=== PATIENT | female | born 1965 | race Caucasian/White ===

== ENCOUNTER 2020-02-18 11:25 | Observation (INO) | payer OTHER ==
[2020-02-18] MEDS ORDERED: ASPIRIN 81 MG PO STA (11:49)
[2020-02-18] MEDS ORDERED: NITROGLYCERIN OINT 1 INCH/GM PACKET TOPICAL STA (11:49)
--- NOTE | 2020-02-18 11:58 | ED ---
General Adult HPI - General Chief complaint: Chest Pain Stated complaint: Chest pressure, lightheaded Time Seen by Provider: 02/18/20 11:30 Source: patient, RN notes reviewed, old records reviewed Mode of arrival: wheelchair Limitations: no limitations - History of Present Illness Initial comments: This is a 55-year-old female with past medical history significant for high blood pressure and smoking. Patient states yesterday while at work she had abo ut a half an hour of chest pain and also some left arm pain. Patient states when away and returned this morning when she was driving into work. Patient states sustained pressure in her chest going down her arm. Patient states she turned around and got home so her could take her to the hospital. Patient states currently she is chest pain-free. Patient denies any difficulty breathing or shortness of breath that it worsened with the chest pain. Patient denied any diaphoretic episodes. Patient denied any nausea. Patient states she felt a little dizzy and she had chest pain. Patient denies any abdominal pain. Patient has any fever chills or cough. Patient denies any headache patient denies numbness or weakness - Related Data Home Medications Medication Instructions Recorded Confirmed Albuterol Inhaler (Mhu) [Ventolin 1 - 2 puff INHALATION Q6HR PRN 04/28/16 04/28/16 Hfa Inhaler] Previous Rx's Medication Instructions Recorded hydroCHLOROthiazide [Hydrodiuril] 25 mg PO DAILY #60 tab 04/28/16 Allergies Allergy/AdvReac Type Severity Reaction Status Date / Time cefaclor [From Ceclor] Allergy Unknown Verified 02/18/20 11:33 Sulfa (Sulfonamide Allergy Rapid Verified 02/18/20 11:33 Antibiotics) Heart Rate Review of Systems ROS Statement: Those systems with pertinent positive or pertinent negative responses have been documented in the HPI. ROS Other: All systems not noted in ROS Statement are negative. Past Medical History Past Medical History: Asthma, Hypertension History of Any Multi-Drug Resistant Organisms: None Reported Past Surgical History: Section Past Psychological History: No Psychological Hx Reported Smoking Status: Current every day smoker Past Alcohol Use History: Rare Past Drug Use History: None Reported General Exam - General Exam Comments Initial Comments: GENERAL: Patient is well-developed and well-nourished. Patient is nontoxic and well- hydrated and is in mild distress. ENT: Neck is soft and supple. No significant lymphadenopathy is noted. Oropharynx is clear. Moist mucous membranes. Neck has full range of motion without eliciting any pain. There is no thyroid enlargement and no masses were felt. EYES: The sclera were anicteric and conjunctiva were pink and moist. Extraocular movements were intact and pupils were equal round and reactive to light. Eyelids were unremarkable. PULMONARY: Unlabored respirations. Good breath sounds bilaterally. No audible rales rhonchi or wheezing was noted. CARDIOVASCULAR: There is a regular rate and rhythm without any murmurs gallops or rubs. ABDOMEN: Soft and nontender with normal bowel sounds. SKIN: Skin is clear with no lesions or rashes and otherwise unremarkable. NEUROLOGIC: Patient is alert and oriented x3. Cranial nerves II through XII are grossly intact. Motor and sensory are also intact. Normal speech, volume and content. Symmetrical smile. MUSCULOSKELETAL: Normal extremities with adequate strength and full range of motion. LYMPHATICS: No significant lymphadenopathy is noted PSYCHIATRIC: Normal psychiatric evaluation. 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 Patient's EKG shows no ST segment elevation or depression. Chest x-ray shows no acute abnormality. Patient remained chest pain-free during her ED stay. I started the patient heparin for the unstable angina picture. I spoke with Dr. Garcia and he agreed to admit the patient I admitted the patient wrote admitting orders I consult cardiology continued heparin and aspirin and Nitropaste on the floor. - Lab Data Result diagrams: 02/18/20 11:53 02/18/20 11:53 Lab Results 02/18/20 02/18/20 02/18/20 Range/Units 11:53 11:53 11:53 WBC 12.6 H (3.8-10.6) k/uL RBC 5.13 (3.80-5.40) m/uL Hgb 15.6 (11.4-16.0) gm/dL Hct 48.6 H (34.0-46.0) % MCV 94.8 (80.0-100.0) fL MCH 30.4 (25.0-35.0) pg MCHC 32.0 (31.0-37.0) g/dL RDW 12.2 (11.5-15.5) % Plt Count 344 (150-450) k/uL Neutrophils % 74 % Lymphocytes % 20 % Monocytes % 5 % Eosinophils % 0 % Basophils % 0 % Neutrophils # 9.2 H (1.3-7.7) k/uL Lymphocytes # 2.5 (1.0-4.8) k/uL Monocytes # 0.6 (0-1.0) k/uL Eosinophils # 0.1 (0-0.7) k/uL Basophils # 0.1 (0-0.2) k/uL PT 9.9 (9.0-12.0) sec INR 0.9 (<1.2) APTT 24.4 (22.0-30.0) sec Sodium 143 (137-145) mmol/L Potassium 4.3 (3.5-5.1) mmol/L Chloride 109 H (98-107) mmol/L Carbon Dioxide 25 (22-30) mmol/L Anion Gap 9 mmol/L BUN 10 (7-17) mg/dL Creatinine 0.65 (0.52-1.04) mg/dL Est GFR (CKD-EPI)AfAm >90 (>60 ml/min/1.73 sqM) Est GFR (CKD-EPI)NonAf >90 (>60 ml/min/1.73 sqM) Glucose 102 H (74-99) mg/dL Calcium 10.1 (8.4-10.2) mg/dL Magnesium 1.9 (1.6-2.3) mg/dL Total Bilirubin 0.4 (0.2-1.3) mg/dL AST 23 (14-36) U/L ALT 19 (4-34) U/L Alkaline Phosphatase 88 (38-126) U/L Total Protein 7.5 (6.3-8.2) g/dL Albumin 4.5 (3.5-5.0) g/dL Critical Care Time Critical Care Time: Yes Total Critical Care Time: 35 Disposition Clinical Impression: Unstable angina pectoris Disposition: ADMITTED IP TO THIS HOSP Referrals: None,Stated [Primary Care Provider] - 1-2 days Time of Disposition: 12:24
[2020-02-18 12:04] LABS: Basophils # (A) 0.1 k/uL (0-0.2); Basophils % (A) 0 %; Eosinophils # (A) 0.1 k/uL (0-0.7); Eosinophils % (A) 0 %; HCT 48.6 % (34.0-46.0); HGB 15.6 gm/dL (11.4-16.0); Lymphocytes # (A) 2.5 k/uL (1.0-4.8); Lymphocytes % (A) 20 %; MCH 30.4 pg (25.0-35.0); MCV 94.8 fL (80.0-100.0); Mean Platelet Volume 6.8; Monocytes # (A) 0.6 k/uL (0-1.0); Monocytes % (A) 5 %; Neutrophils # (A) 9.2 k/uL (1.3-7.7); Neutrophils % (A) 74 %; Platelet Count 344 k/uL (150-450); RBC 5.13 m/uL (3.80-5.40); RDW 12.2 % (11.5-15.5); WBC 12.6 k/uL (3.8-10.6)
[2020-02-18 12:12] LABS: ALT 19 U/L (4-34); AST 23 U/L (14-36); African American GFR (CKD) >90 (>60 ml/min/1.73 sqM); Albumin 4.5 g/dL (3.5-5.0); Alkaline Phosphatase 88 U/L (38-126); Anion Gap 9 mmol/L; Blood Urea Nitrogen 10 mg/dL (7-17); Calcium 10.1 mg/dL (8.4-10.2); Carbon Dioxide 25 mmol/L (22-30); Chloride 109 mmol/L (98-107); Glucose 102 mg/dL (74-99); Magnesium 1.9 mg/dL (1.6-2.3); Non-African American GFR(CKD) >90 (>60 ml/min/1.73 sqM); Potassium 4.3 mmol/L (3.5-5.1); Sodium 143 mmol/L (137-145); Total Bilirubin 0.4 mg/dL (0.2-1.3); Total Protein 7.5 g/dL (6.3-8.2)
--- NOTE | 2020-02-18 12:13 | XR ---
EXAMINATION TYPE: XR chest 2V DATE OF EXAM: 02/18/2020 COMPARISON: Chest x-ray October 25, 2014. HISTORY: Chest pressure and pain. TECHNIQUE: Frontal and lateral views of the chest are obtained. FINDINGS: Overlying EKG leads on current study. There is some chronic parenchymal change bilaterally without suspicious new focal air space opacity, pleural effusion, or pneumothorax seen. Few scattere d calcified old granulomas redemonstrated. The cardiac silhouette size remains within normal limits. The osseous structures are intact. IMPRESSION: No acute cardiopulmonary process. No significant change from prior.
[2020-02-18 12:18] LABS: INR 0.9 (<1.2); Partial Thromboplastin Time 24.4 sec (22.0-30.0); Prothrombin Time 9.9 sec (9.0-12.0)
[2020-02-18] MEDS ORDERED: HEPARIN SODIUM,PORCINE 5,000 UNIT/ML 1 ML VIAL IV ONE (12:20)
[2020-02-18] MEDS ORDERED: NITROGLYCERIN SL TABS 0.4 MG TAB SUBLINGUAL PRN (12:30)
[2020-02-18] MEDS ORDERED: HEPARIN SOD,PORK IN 0.45% NACL 25,000 UNIT in 0.45% NACL 1 250ML.BAG IV SCH (12:30)
--- NOTE | 2020-02-18 13:19 | P.CRDCN ---
History of Present Illness History of present illness: HISTORY OF PRESENTING ILLNESS This is a pleasant 55-year-old female past medical history significant for hypertension and chronic nicotine dependence. She denies prior history of c oronary artery disease and does not follow in the office with a rehab department manager. We have been asked to see in consultation for chest pain. She works as a massage therapist. Yesterday she was doing a massage when she felt acute onset of pressure in the left anterior chest wall with radiation down the left arm. She continued to finish her massage and her pain persisted for approximately 30 minutes. It ultimately subsided on its own with no specific exacerbating factor. She denies any associated symptoms at that time. She had no further symptoms that night. She woke up this morning feeling well. She was driving to work when she had another onset of chest discomfort with again radiation down the left arm but this time she felt very dizzy. Again her symptoms lasted about 20-30 minutes. The subsided prior to arrival to the emergency department. She also describes very brief intermittent palpitations at times. She did feel 1 palpitation once she was having chest discomfort however it was not persistent. DIAGNOSTICS EKG reveals sinus mechanism with nonspecific abnormalities inferiorly. Chest xray negative for an acute cardiopulmonary process. Laboratory reviewed, WBC 12.6, hemoglobin 15.6, platelets 344, sodium 143, potassium 4.3, creatinine 065, magnesium 1.9 and cardiac enzymes negative 1. Current cardiac medications include lisinopril 40 mg daily. REVIEW OF SYSTEMS At the time of my exam: CONSTITUTIONAL: Denies fever or chills. CARDIOVASCULAR: Denies chest pain, shortness of breath, orthopnea, PND or palpitations. RESPIRATORY: Denies cough. GASTROINTESTINAL: Denies abdominal pain, diarrhea, constipation, nausea or vomiting. MUSCULOSKELETAL: Denies myalgias. NEUROLOGIC: Denies numbness, tingling or weakness. ENDOCRINE: Denies fatigue, weight change, polydipsia or polyurina. GENITOURINARY: Denies burning, hematuria or urgency with micturation. HEMATOLOGIC: Denies history of anemia or bleeding. PHYSICAL EXAMINATION Blood pressure 123/85 heart rate 74 afebrile and maintaining oxygen saturation on room air. CONSTITUTIONAL: No apparent distress. HEENT: Head is normocephalic. Pupils are equal, round. Sclerae anicteric. Mucous membranes of the mouth are moist. No JVD. No carotid bruit. CHEST EXAMINATION: Lungs are clear to auscultation. No chest wall tenderness is noted on palpation or with deep breathing. HEART EXAMINATION: Regular rate and rhythm. S1, S2 heard. No murmurs, gallops or rub. ABDOMEN: Soft, nontender. Positive bowel sounds. EXTREMITIES: 2+ peripheral pulses, no lower extremity edema and no calf tenderness. NEUROLOGIC EXAMINATION: Patient is awake, alert and oriented x3. ASSESSMENT Chest pain Leukocytosis Hypertension Chronic nicotine dependence PLAN Continue to obtain serial cardiac enzymes to rule out an acute event. Heparin can be discontinued after 3 negative troponins. Obtain 2-D echocardiogram and Doppler study to assess cardiac structure and function. If an acute event has been ruled out we will proceed with stress echocardiogram tomorrow morning. Continuous telemetry monitoring. Check lipid profile in the morning. Thank you kindly for this consultation. Nurse Practitioner note has been reviewed, I agree with a documented findings and plan of care. Patient was seen and examined. Past Medical History Past Medical History: Asthma, Hypertension History of Any Multi-Drug Resistant Organisms: None Reported Past Surgical History: Section Past Psychological History: No Psychological Hx Reported Smoking Status: Current every day smoker Past Alcohol Use History: Rare Past Drug Use History: None Reported Medications and Allergies Home Medications Medication Instructions Recorded Confirmed Type Albuterol Sulfate [Albuterol 1 - 2 puff INHALATION RT-Q6H PRN 02/18/20 02/18/20 History Sulfate Hfa] lisinopriL [Zestril] 40 mg PO DAILY@0700 02/18/20 02/18/20 History Allergies Allergy/AdvReac Type Severity Reaction Status Date / Time cefaclor [From [facility]] Allergy Unknown Verified 02/18/20 12:44 Sulfa (Sulfonamide AdvReac Rapid Verified 02/18/20 12:44 Antibiotics) Heart Rate Physical Exam Vitals: Vital Signs Temp Pulse Pulse Pulse Resp BP BP 02/18/20 13:11 98.3 F 86 14 136/85 02/18/20 12:30 98.0 F 74 18 123/85 02/18/20 12:00 77 18 131/86 02/18/20 11:48 81 02/18/20 11:30 98.6 F 75 20 159/92 Pulse Ox 02/18/20 13:11 97 02/18/20 12:30 98 02/18/20 12:00 99 02/18/20 11:48 02/18/20 11:30 99 Intake and Output 02/17/20 02/18/20 02/18/20 22:59 06:59 14:59 Other: Weight 74.843 kg Results 02/18/20 11:53 02/18/20 11:53 Cardiac Enzymes 02/18/20 02/18/20 Range/Units 11:53 11:53 AST 23 (14-36) U/L Troponin I <0.012 (0.000-0.034) ng/mL Coagulation 02/18/20 Range/Units 11:53 PT 9.9 (9.0-12.0) sec APTT 24.4 (22.0-30.0) sec CBC 02/18/20 Range/Units 11:53 WBC 12.6 H (3.8-10.6) k/uL RBC 5.13 (3.80-5.40) m/uL Hgb 15.6 (11.4-16.0) gm/dL Hct 48.6 H (34.0-46.0) % Plt Count 344 (150-450) k/uL Comprehensive Metabolic Panel 02/18/20 Range/Units 11:53 Sodium 143 (137-145) mmol/L Potassium 4.3 (3.5-5.1) mmol/L Chloride 109 H (98-107) mmol/L Carbon Dioxide 25 (22-30) mmol/L BUN 10 (7-17) mg/dL Creatinine 0.65 (0.52-1.04) mg/dL Glucose 102 H (74-99) mg/dL Calcium 10.1 (8.4-10.2) mg/dL AST 23 (14-36) U/L ALT 19 (4-34) U/L Alkaline Phosphatase 88 (38-126) U/L Total Protein 7.5 (6.3-8.2) g/dL Albumin 4.5 (3.5-5.0) g/dL Current Medications Generic Name Dose Route Start Last Admin Trade Name Freq PRN Reason Stop Dose Admin Aspirin 325 mg 02/19/20 09:00 Aspirin PO DAILY SVEN Heparin Sodium/Sodium Chloride 250 mls @ 8.981 mls/hr 02/18/20 12:30 02/18/20 12:49 25,000 unit/ Sodium Chloride IV 12 units/kg/hr .Q24H SVEN 8.981 mls/hr Administration Protocol 12 UNITS/KG/HR Nitroglycerin 0.4 mg 02/18/20 12:30 Nitrostat SUBLINGUAL Q5M PRN Chest Pain Nitroglycerin 1 inch 02/18/20 18:00 Nitro-Bid Oint TOPICAL Q6HR SVEN Intake and Output 02/17/20 02/18/20 02/18/20 22:59 06:59 14:59 Other: Weight 74.843 kg Patient Weight 02/19/20 06:59 Weight 74.843 kg 02/18/20 11:53 02/18/20 11:53
[2020-02-18] MEDS ORDERED: TEMAZEPAM 15 MG CAP PO PRN (15:05)
[2020-02-18] MEDS ORDERED: ALPRAZolam 0.25 MG TAB PO PRN (15:05)
[2020-02-18] MEDS ORDERED: HYDROcodone/APAP 5-325MG 1 EACH TAB PO PRN (15:05)
[2020-02-18] MEDS ORDERED: ACETAMINOPHEN TAB 500 MG TAB PO PRN (15:05)
[2020-02-18] MEDS ORDERED: ALBUTEROL NEBULIZED 2.5 MG/3 ML INHALATION PRN (15:05)
--- NOTE | 2020-02-18 16:08 | HP ---
HISTORY AND PHYSICAL DATE OF SERVICE: 02/18/2020 CHIEF COMPLAINTS: Chest pain, lightheadedness. HISTORY OF PRESENT ILLNESS: This 55-year-old woman with a past medical history of multiple medical problems, including history of asthma, hypertension, being followed by a primary physician elsewhere, was going to work and the patient had chest pressure in the anterior part of the chest which was mild to moderate in intensity which was going down the left arm. The patient also felt dizzy. Then the patient came to [facility] and was admitted for further evaluation and treatment. There is no history of any fever, rigor or chills. No history of headache, loss of consciousness, seizures. White count is 12.6. Troponins are negative. Chest x-ray, which was reviewed personally by me, showed no acute abnormality and no significant changes. Cardiology evaluation is in progress. EKG showed incomplete right bundle block and ST-T changes. Cardiology is recommending a stress echo at this time. PAST MEDICAL HISTORY: History of asthma, hypertension. MEDICATIONS: Albuterol p.r.n. and Zestril 40 mg daily. ALLERGIES: CEFACLOR and SULFA. FAMILY HISTORY: History of CABG in a sister recently. Father had cardiomegaly. SOCIAL HISTORY: History of smoking, continued ongoing. No history of alcohol intake. The patient works as a massage therapist. REVIEW OF SYSTEMS: ENT: No diminished hearing. No diminished vision. CARDIOVASCULAR SYSTEM: As mentioned earlier. RESPIRATORY SYSTEM: As mentioned earlier. GI: No nausea, vomiting. : No dysuria or retention. NERVOUS SYSTEM: No numbness, weakness. ALLERGY/IMMUNOLOGY: No asthma, hayfever. MUSCULOSKELETAL: As mentioned earlier. HEMATOLOGY/ONCOLOGY: No history of anemia. ENDOCRINE: No history of diabetes, hypothyroidism. CONSTITUTIONAL: As mentioned earlier. DERMATOLOGY: Negative. RHEUMATOLOGY: Negative. PSYCHIATRY: As mentioned earlier. PHYSICAL EXAMINATION: Patient alert and oriented x3. Pulse is 86, blood pressure 136/85, respiration 14, temperature 98.3, pulse ox 97% on room air. HEENT: Conjunctivae normal. NECK: No jugular venous distention. CARDIOVASCULAR SYSTEM: S1, S2 muffled. RESPIRATORY SYSTEM: Breath sounds diminished at the bases. No rhonchi. No crackles. ABDOMEN: Soft, non-tender. No mass palpable. LEGS: No edema. No swelling. NERVOUS SYSTEM: Higher functions as mentioned earlier. Moves all 4 limbs. No focal motor or sensory deficit. LYMPHATICS: No lymph node palpable in neck, axillae or groin. SKIN: No ulcer, rash, bleeding. JOINTS: No active deforming arthropathy. LABS: WBC 12.6. Sodium 143, potassium 4.3. ASSESSMENT: 1. Chest pain; possible unstable angina. 2. Increased white count, possibly reactive. 3. History of asthma. 4. History of hypertension. 5. History of nicotine dependence. 6. Family history of coronary artery disease. RECOMMENDATIONS AND DISCUSSION: In this 55-year-old woman with a past medical history of multiple medical problems, presented with chest pain. We will proceed with unstable angina protocol. Rule out myocardial infarction. Cardiology consultation. Possible stress test. Also recommend repeat labs in the morning. There is no evidence of any infection so far, but I recommend a UA with micro also. Symptomatic treatment will be provided. Recommend close followup with the primary physician in the outpatient setting. MMODL / IJN: [id number] /
[2020-02-18] MEDS: PANTOPRAZOLE 40 MG/10 ML VIAL IVP SCH (16:50)
[2020-02-18 17:11] LABS: Amorphous Sediment,Urine Rare /hpf; Appearance,Urine Cloudy (Clear); Bilirubin,Urine Negative (Negative); Blood,Urine Trace (Negative); Color,Urine Yellow; Glucose,Urine (UA) Negative (Negative); Ketones,Urine Negative (Negative); Leukocyte Esterase,Urine Negative (Negative); Mucus,Urine Rare /hpf; Nitrite,Urine Negative (Negative); PH, Urine 7.5 (5.0-8.0); Protein,Urine Negative (Negative); RBC,Urine 9 /hpf (0-5); Specific Gravity,Urine 1.016 (1.001-1.035); Squamous Epithelial Cell,Urine <1 /hpf (0-4); Urobilinogen,Urine <2.0 mg/dL (<2.0); WBC,Urine 3 /hpf (0-5)
[2020-02-18] MEDS: NITROGLYCERIN OINT 1 INCH/GM PACKET TOPICAL SCH ×2 (19:13→21:38)
--- NOTE | 2020-02-18 20:50 | ECHOF ---
Referral Reason:chest pain, dizziness MEASUREMENTS -------- HEIGHT: 172.7 cm WEIGHT: 74.8 kg BP: 136/85 IVSd: 1.0 cm (0.6 - 1.1) LVIDd: 4.4 cm (3.9 - 5.3) LVPWd: 0.8 cm (0.6 - 1.1) IVSs: 1.6 cm LVIDs: 2.4 cm LVPWs: 1.4 cm LA Diam: 2.7 cm (2.7 - 3.8) RVIDd: 2.7 cm (< 3.3) LAESV Index (A-L): 14.74 ml/m Ao Diam: 3.2 cm (2.0 - 3.7) AV Cusp: 2.0 cm (1.5 - 2.6) EPSS: 0.8 cm MV E Rex: 0.95 m/s MV DecT: 288 ms MV A Rex: 1.21 m/s MV E/A Ratio: 0.78 AV maxP.20 mmHg AV meanP.07 mmHg AR PHT: 1280 ms MV EF SLOPE: 85.37 mm/s (70 - 150) MV EXCURSION: 13.67 mm (> 18.000) FINDINGS -------- Sinus rhythm. This was a technically adequate study. The left ventricular size is normal. Left ventricular wall thickness is normal. Overall left vent ricular systolic function is normal with, an EF between 60 - 65 %. The right ventricle is normal in size. Normal LA size by volume 22+/-6 ml/m2. The right atrium is normal in size. Interatrial and interventricular septum intact. There is mild aortic valve sclerosis. There is mild aortic regurgitation. Peak/mean gradient acro ss the Aortic Valve is 17.20mmHg / 9.07mmHg. The mitral valve is normal. The tricuspid valve appears structurally normal. There is no pulmonic regurgitation present. The aortic root size is normal. Normal inferior vena cava with normal inspiratory collapse consistent with estimated right atrial pre ssure of 5 mmHg. The inferior vena cava is mildly dilated. There is no pericardial effusion. CONCLUSIONS -------- 1. The left ventricular size is normal. 2. Left ventricular wall thickness is normal. 3. Overall left ventricular systolic function is normal with, an EF between 60 - 65 %. 4. There is mild aortic valve sclerosis. 5. There is mild aortic regurgitation. 6. Peak/mean gradient across the Aortic Valve is 17.20mmHg / 9.07mmHg. 7. The mitral valve is normal. 8. The inferior vena cava is mildly dilated. 9. There is no pericardial effusion. ENGINE TESTER: Chaparrita Garrett RDCS
[2020-02-19] MEDS: NITROGLYCERIN OINT 1 INCH/GM PACKET TOPICAL SCH (04:51)
[2020-02-19 06:51] LABS: Basophils # (A) 0.1 k/uL (0-0.2); Basophils % (A) 1 %; Eosinophils # (A) 0.1 k/uL (0-0.7); Eosinophils % (A) 1 %; HCT 46.1 % (34.0-46.0); HGB 14.7 gm/dL (11.4-16.0); Lymphocytes # (A) 3.9 k/uL (1.0-4.8); Lymphocytes % (A) 37 %; MCH 30.9 pg (25.0-35.0); MCHC 31.8 g/dL (31.0-37.0); MCV 97.1 fL (80.0-100.0); Mean Platelet Volume 7.1; Monocytes # (A) 0.6 k/uL (0-1.0); Monocytes % (A) 6 %; Neutrophils # (A) 5.7 k/uL (1.3-7.7); Neutrophils % (A) 54 %; Platelet Count 322 k/uL (150-450); RBC 4.75 m/uL (3.80-5.40); RDW 12.3 % (11.5-15.5); WBC 10.5 k/uL (3.8-10.6)
[2020-02-19] MEDS ORDERED: lisinopriL 20 MG TAB PO SCH (07:00)
[2020-02-19 07:03] LABS: African American GFR (CKD) >90 (>60 ml/min/1.73 sqM); Anion Gap 3 mmol/L; Blood Urea Nitrogen 12 mg/dL (7-17); Calcium 9.2 mg/dL (8.4-10.2); Carbon Dioxide 27 mmol/L (22-30); Chloride 109 mmol/L (98-107); Cholesterol 182 mg/dL (<200); Glucose 100 mg/dL (74-99); HDL Cholesterol 41 mg/dL (40-60); LDL Cholesterol,Calculated 124 mg/dL (0-99); Non-African American GFR(CKD) 90 (>60 ml/min/1.73 sqM); Potassium 4.4 mmol/L (3.5-5.1); Sodium 139 mmol/L (137-145); Triglycerides 87 mg/dL (<150)
[2020-02-19] MEDS: PANTOPRAZOLE 40 MG/10 ML VIAL IVP SCH (07:43)
[2020-02-19] MEDS ORDERED: DOBUTamine DRIP for NUC MED 500 MG in DEXTROSE/WATER 1 250ML.BAG IV ONE (08:26)
[2020-02-19 08:36] VITALS: BP 124/79; PULSE 59; RESP 16; TEMP 98.1
[2020-02-19] MEDS ORDERED: ATORVASTATIN 40 MG TAB PO SCH (09:00)
[2020-02-19] MEDS ORDERED: ASPIRIN 81 MG PO SCH (09:00)
[2020-02-19] MEDS ORDERED: ASPIRIN 325 MG TAB PO SCH (09:00)
--- NOTE | 2020-02-19 12:06 | ECHOS ---
STRESS ECHOCARDIOGRAM LUMASON: @@ Vial INDICATIONS: @@ MEDICATIONS: @@ BASELINE HEART RATE: @@ BASELINE BLOOD PRESSURE: @@ MAXIMUM HEART RATE: @@ MAXIMUM BLOOD PRESSURE: @@ 85% MPHR: @@ 100% MPHR: @@ METS: @@ MAXIMUM STAGE REACHED: @@ TOTAL EXERCISE TIME: @@ CLINICAL INFORMATION: @@ History of chest pain, history of smoking, hypertension. Baseline heart rate 59 beats per minute. Baseline blood pressure 144/79 mmHg. Baseline 12-lead ECG showed normal sinus rhythm with normal cardiac intervals. Patient received dobutamine infusion per protocol up to 140 mcg. Peak heart rate of 137 beats per minute. There was no ECG evidence for ischemia. Occasional PVCs were noted throughout the test. Blood pressure response was normal. The baseline 2D echo showed normal LV size and systolic function without segmental wall motion abnormalities. With dobutamine, there was stepwise increment in overall LV contractility without development of any wall motion abnormalities. At recovery, regional global LV systolic function remained normal. IMPRESSION: No ECG or echocardiographic evidence for ischemia, PVCs noted with dobutamine infusion. MMODL / IJN: [id number] /
--- NOTE | 2020-02-19 12:11 | P.PN ---
Subjective HISTORY OF PRESENTING ILLNESS This is a pleasant 55-year-old female past medical history significant for hypertension and chronic nicotine dependence. Her sister had bypass grafting at the age of 58. She has had no further symptoms of chest pain since arriving at the hospital. Echocardiogram referring is preserved LV systolic function with mild aortic stenosis. Laboratory data reviewed, LDL 124. Cardiac enzymes negative 3. Dobutamine stress echocardiogram negative for stress-induced ischemia. Telemetry tracings unremarkable for an acute arrhythmia. PHYSICAL EXAMINATION CONSTITUTIONAL: No apparent distress. HEENT: Head is normocephalic. Pupils are equal, round. Sclerae anicteric. Mucous membranes of the mouth are moist. No JVD. No carotid bruit. CHEST EXAMINATION: Lungs are clear to auscultation. No chest wall tenderness is noted on palpation or with deep breathing. HEART EXAMINATION: Regular rate and rhythm. S1, S2 heard. No murmurs, gallops or rub. EXTREMITIES: 2+ peripheral pulses, no lower extremity edema and no calf tenderness. ASSESSMENT Chest pain Leukocytosis Hypertension Chronic nicotine dependence Family history of premature coronary artery disease PLAN Stress test is normal with no evidence for stress induced ischemia. Recommend initiation of atorvastatin 20 mg daily. Rational discussed in great detail with the patient. Follow up in the office with Dr. Martínez in 3 weeks. Nurse Practitioner note has been reviewed, I agree with a documented findings and plan of care. Patient was seen and examined. Objective - Vital Signs Vital signs: Vital Signs Temp 98.1 F 02/19/20 07:41 Pulse 59 L 02/19/20 08:36 Resp 16 02/19/20 08:36 BP 124/79 02/19/20 07:41 Pulse Ox 97 02/19/20 07:41 Intake & Output 02/18/20 02/19/20 02/19/20 18:59 06:59 18:59 Intake Total 140 522.447 91.906 Balance 140 522.447 91.906 Weight 74.843 kg 74.84 kg Intake: Intake, IV Titration 72.447 91.906 Amount Heparin Sod,Pork in 0.45% 72.447 91.906 NaCl 25,000 unit In 0.45 % NaCl 1 250ml.bag @ 12 UNITS/KG/HR 8.981 mls/hr IV .[facility] Rx#: [id number] Oral 140 450 Other: Voiding Method Toilet Toilet Toilet # Voids 1 1 - Labs CBC & Chem 7: 02/19/20 06:04 02/19/20 06:04 Labs: Abnormal Lab Results - Last 24 Hours (Table) 02/18/20 02/18/20 02/18/20 Range/Units 11:53 16:53 19:00 Hct (34.0-46.0) % APTT 64.5 H (22.0-30.0) sec Chloride 109 H (98-107) mmol/L Glucose 102 H (74-99) mg/dL LDL Cholesterol, Calc (0-99) mg/dL Urine Appearance Cloudy H (Clear) Urine Blood Trace H (Negative) Urine RBC 9 H (0-5) /hpf Amorphous Sediment Rare H (None) /hpf Urine Mucus Rare H (None) /hpf 02/19/20 02/19/20 02/19/20 Range/Units 06:04 06:04 06:04 Hct 46.1 H (34.0-46.0) % APTT 70.6 H (22.0-30.0) sec Chloride 109 H (98-107) mmol/L Glucose 100 H (74-99) mg/dL LDL Cholesterol, Calc 124 H (0-99) mg/dL Urine Appearance (Clear) Urine Blood (Negative) Urine RBC (0-5) /hpf Amorphous Sediment (None) /hpf Urine Mucus (None) /hpf
--- NOTE | 2020-02-19 17:05 | DS ---
DISCHARGE SUMMARY DATE OF SERVICE: 02/19/2020 FINAL DIAGNOSES: 1. Chest pain possibly musculoskeletal, myocardial infarction ruled out. Negative stress test. 2. Increased WBC possibly reactive. 3. History of asthma. 4. History of hypertension. 5. History of nicotine dependence. 6. Family history of coronary artery disease. DISCHARGE DISPOSITION: The patient will be discharged in a stable condition with guarded prognosis. HISTORY OF PRESENT ILLNESS: This is a 55-year-old woman with a past medical history of multiple medical problems, admitted with chest pain. Cardiology saw the patient, recommended a stress test which was a dobutamine stress echo was done which was reported showing no ECG echocardiogram evidence of ischemia. The patient will be discharged in stable condition. On exam, vitals are stable. CARDIOVASCULAR: S1, S2. ABDOMEN: Soft. NERVOUS SYSTEM: No focal deficits. DISCHARGE ADVICE: 1. Diet is cardiac diet. 2. Limited activity until followup. 3. Follow up with primary physician in 2-3 days. 4. Follow up with Dr. Martínez as recommended. MEDICATIONS: 1. Albuterol p.r.n. 2. Zestril 40 mg daily. 3. Lipitor 40 mg daily. Once again, the patient will be discharged in stable condition with guarded prognosis. MMODL / IJN: [id number] /
== END 2020-02-19 12:34 | disposition home or self-care (01) ==
LOC: EC 11:25 → 3NCARDOBS 12:30
PROVIDERS: ADMIT Internal Medicine; ATTEND Internal Medicine
DX: R07.9 Chest pain, unspecified (principal); R42 Dizziness and giddiness; I10 Essential (primary) hypertension; D72.829 Elevated white blood cell count, unspecified; I35.0 Nonrheumatic aortic (valve) stenosis; I45.10 Unspecified right bundle-branch block; F17.200 Nicotine dependence, unspecified, uncomplicated; J45.909 Unspecified asthma, uncomplicated; Z98.890 Other specified postprocedural states; Z82.49 Family history of ischemic heart disease and other diseases of the circulatory system; Z79.899 Other long term (current) drug therapy; Z88.1 Allergy status to other antibiotic agents; Z88.2 Allergy status to sulfonamides
CPT/HCPCS: 93005 ×2; 96365; 96366 ×2; 96375; 96376 ×2; 99291; 36415; 93306; 93351; 80061; 80053; 80048; 83735; 84484; 85025 ×2; 85610; 85730 ×2; 81001; 71046; G0378 ×2; J1250; J1644 ×2; C9113 ×2

== ENCOUNTER → 2021-04-07 | Outpatient (CLI) | payer OTHER ==
--- NOTE | 2021-04-07 08:10 | US ---
EXAMINATION TYPE: US thyroid st tissue head/neck DATE OF EXAM: 04/07/2021 COMPARISON: NONE CLINICAL HISTORY: R94.6 Abnormal results of thyroid function studies. GLAND SIZE: Right Lobe: 4.6x2.0x1.3 cm Overall Parenchyma: homogenous Left Lobe: 5.2x2.6x2.8 cm Overall Parenchyma: homogeneous Isthmus Thickness: 0.5 cm NODULES RIGHT: # of nodules measured on right: 3 1. 0.9 X 0.8 x 0.9 cm, mid mid, solid or almost completely solid, isoechoic nodule, which is wider than tall, with smooth margins, without echogenic foci. 2. 1.6 X 1.3 x 1.0 cm, lower lateral, solid or almost completely solid, very hypoechoic nodule, whi ch is taller than wide, with smooth margins, with echogenic foci. 3. 0.7 X 0.6 x 0.8 cm, lower medial, solid or almost completely solid, hypoechoic nodule, which is wider than tall, with smooth margins, without echogenic foci. LEFT: # of nodules measured on left: 1 1. 4.2 X 2.3 x 2.5 cm, mid mid, mixed cystic and solid, hypoechoic nodule, which is wider than tall , with smooth margins, with echogenic foci. ISTHMUS: # of nodules measured in the isthmus: 0 Bilateral neck scanned, Right neck level 2 multiple lymph nodes largest with minimal hilum measures 1 .6x0.6x1.9cm. Left neck largest lymph node with minimal hilum measures 2.0x0.9x2.3cm IMPRESSION: Nonspecific Complex and solid nodularity greater than 1 cm bilaterally. Tissue diagnosis recommended.
== END | disposition home or self-care (01) ==
LOC: RADUSWWP 07:10
PROVIDERS: ATTEND Family Medicine
DX: E04.2 Nontoxic multinodular goiter (principal)
CPT/HCPCS: 76536

== ENCOUNTER 2021-08-23 12:14 | Day surgery (SDC) | payer OTHER ==
[2021-08-23 12:48] VITALS: TEMP 98.4
[2021-08-23 13:47] VITALS: RESP 16
[2021-08-23 13:48] VITALS: BP 130/74; PULSE 69
--- NOTE | 2021-08-23 13:52 | US ---
EXAMINATION TYPE: US FNA first lesion DATE OF EXAM: 08/23/2021 COMPARISON: NONE HISTORY: Thyroid nodule left lobe. Maximal barrier technique was utilized. After informed consent, skin overlying the dominant left lob e thyroid nodule was localized with ultrasound and the overlying skin prepped and draped. Ultrasound was utilized using sterile technique. Lidocaine was used for local anesthesia. Five passes with a 25 -gauge needle were made into the nodule and aspirated specimen was submitted to cytology. Following the procedure hemostasis achieved. No immediate complication. The patient discharged in stable cond ition. IMPRESSION: STATUS POST ULTRASOUND GUIDED FINE NEEDLE ASPIRATION OF THYROID NODULE, PATHOLOGY IS PEND ING. THIS PROCEDURE WAS PERFORMED BY THE UNDERSIGNED.
== END 2021-08-23 13:48 | disposition home or self-care (01) ==
LOC: RADPROMAIN 12:14
PROVIDERS: ATTEND Otolaryngology
DX: E04.1 Nontoxic single thyroid nodule (principal)
CPT/HCPCS: 10005; 88173; 88305

== ENCOUNTER → 2022-03-12 | Outpatient (CLI) | payer OTHER ==
--- NOTE | 2022-03-12 11:00 | US ---
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 Hx FNA. GLAND SIZE: Right Lobe: 5.0 x 1.2 x 1.7 cm Overall Parenchyma: homogenous Left Lobe: 5.9 x 2.7 x 2.7 cm Overall Parenchyma: homogeneous Isthmus Thickness: 0.4 cm NODULES RIGHT: # of nodules measured on right: 3 1. 0.9 X 0.8 x 0.8 cm, mid lateral, solid or almost completely solid, hypoechoic nodule, which is a s wide as it tall, with smooth margins, without echogenic foci. Prior size: 0.9 x 0.8 x 0.9 cm. 2. 1.6 X 1.3 x 1.5 cm, lower lateral, mixed cystic and solid nodule, which is taller than wide, wit h smooth margins, without echogenic foci. Prior size: 1.6 x 1.3 x 1.0 cm 3. 0.9 X 0.9 x 0.8 cm, mid medial, mixed cystic and solid, hypoechoic nodule, which is wider than t all, with smooth margins, with echogenic foci. Prior size: cannot definitely correlate LEFT: # of nodules measured on left: 1 1. 4.5 X 3.1 x 2.5 cm, mid mid, mixed cystic and solid nodule, which is wider than tall, with becky h margins, without echogenic foci. Prior size: 4.2 x 2.3 x 2.5 cm ISTHMUS: # of nodules measured in the isthmus: 0 Bilateral neck scanned, no evidence of lymphadenopathy. Hypoechoic area with hyperechoic center seen right neck: 1.7 x 1.1 x 0.3 cm. Hypoechoic area with hyperechoic center seen left neck: 2.0 x 2.1 x 1.0 cm. IMPRESSION: 1. Multinodular thyroid. Largest nodule is demonstrated minimal incremental increase in size. 2. Greatest TI-RADS score correlates with the 9 mm solid thyroid nodule. 3. Incidental note made of bilateral neck lymphadenopathy. 2017 ACR TI-RADS LEVEL: TR-RADS 4 - Moderately Suspicious: Follow if > 1 cm, FNA if > 1.5 cm *Highest TI-RADS level nodule reported
== END | disposition home or self-care (01) ==
LOC: RADUSWWP 09:59
PROVIDERS: ATTEND Otolaryngology
DX: E04.2 Nontoxic multinodular goiter (principal)
CPT/HCPCS: 76536

== ENCOUNTER → 2022-11-26 | Outpatient (CLI) | payer OTHER ==
[2022-11-27 02:22] LABS: Basophils # (A) 0.06 X 10*3/uL (0.00-0.10); Basophils % (A) 0.6 %; Eosinophils # (A) 0.09 X 10*3/uL (0.04-0.35); Eosinophils % (A) 0.9 %; HCT 49.4 % (37.2-46.3); HGB 15.9 g/dL (12.0-15.0); Immature Grans, Automated 0.4 %; Lymphocytes # (A) 3.19 X 10*3/uL (0.90-5.00); Lymphocytes % (A) 30.6 %; MCH 31.1 pg (27.0-32.0); MCHC 32.2 g/dL (32.0-37.0); MCV 96.5 fL (80.0-97.0); Mean Platelet Volume 9.8 fL (9.5-12.2); Monocytes # (A) 0.79 X 10*3/uL (0.20-1.00); Monocytes % (A) 7.6 %; NRBC Per 100 WBC 0 /100 WBCS (0.0-0.0); Neutrophils # (A) 6.26 X 10*3/uL (1.80-7.70); Neutrophils % (A) 59.9 %; Platelet Count 384 X 10*3/uL (140-440); RBC 5.12 X 10*6/uL (4.10-5.20); RDW 12.7 % (11.5-14.5); WBC 10.43 X 10*3/uL (4.50-10.00)
[2022-11-27 02:29] LABS: African American GFR (CKD) 92.9 (60.0-200.0); Albumin 4.6 g/dL (3.8-4.9); Albumin/Globulin Ratio 1.78 (1.60-3.17); Anion Gap 9.4 mmol/L (10.00-18.00); BUN/Creat Ratio 16.24 Ratio (12.00-20.00); Blood Urea Nitrogen 13.3 mg/dL (9.0-27.0); Calcium 10.2 mg/dL (8.7-10.3); Carbon Dioxide 26.6 mmol/L (20.0-27.5); Globulin 2.6 g/dL (1.6-3.3); Magnesium 2.3 mg/dL (1.5-2.4); Non-African American GFR(CKD) 80.1 (60.0-200.0); Potassium 5.1 mmol/L (3.5-5.5); Total Bilirubin 0.3 mg/dL (0.30-1.20); Total Protein 7.2 g/dL (6.2-8.2)
== END | disposition home or self-care (01) ==
LOC: LABWHC1 12:56
PROVIDERS: ATTEND Nurse Practitioner Adult Health
DX: I10 Essential (primary) hypertension (principal)
CPT/HCPCS: 36415; 80053; 83735; 85025

== ENCOUNTER → 2023-01-28 | Outpatient (CLI) | payer OTHER ==
--- NOTE | 2023-01-28 10:50 | US ---
EXAMINATION TYPE: US thyroid st tissue head/neck DATE OF EXAM: 01/28/2023 COMPARISON: NONE CLINICAL INDICATION: Female, 57 years old with history of E04.2 NONTOXIC MULTINODULAR GOITER; thy nod ules on meds. GLAND SIZE: Right Lobe: 5.2 x 1.8 x 1.2 cm Overall Parenchyma: heterogenous Left Lobe: 6.6 x 3.2 x 4.0 cm Overall Parenchyma: heterogenous Isthmus Thickness: 0.6 cm NODULES RIGHT: # of nodules measured on right: 2 1. 0.8 X 0.8 x 0.9 cm, mid , TIRADS Score: 4 TIRADS Category 4: Moderately Suspicious Composition: Solid or almost completely solid (2 points). Echogenicity: Hypoechoic (2 points). Shape: Wider than tall (0 points). Margin: Smooth (0 points). Echogenic foci: None or large comet-tail artifacts (0 points) Recommendation: If >1.5cm: FNA; If >1cm: Follow up at 1,2, 3,5 years 2. 1.0 X 0.8 x 1.0 cm, lower , Prior size: 1.6 x 15 x 1.3 cm TIRADS Score: 3 TIRADS Category 3: Mildly Suspicious Composition: Mixed cystic and solid (1 point). Echogenicity: Hypoechoic (2 points). Shape: Wider than tall (0 points). Margin: Smooth (0 points). Echogenic foci: None or large comet-tail artifacts (0 points) Recommendation: If >2.5cm: FNA; If >1.5cm: Follow up at 1,3,5 years LEFT: # of nodules measured on left: 1 1. 5.2 X 3.0 x 3.7 cm, mid , Prior size: 4.5 x 2.5 x 3.1 cm TIRADS Score: 3 TIRADS Category 3: Mildly Suspicious Composition: Mixed cystic and solid (1 point). Echogenicity: Hypoechoic (2 points). Shape: Wider than tall (0 points). Margin: Smooth (0 points). Echogenic foci: None or large comet-tail artifacts (0 points) Recommendation: If >2.5cm: FNA; If >1.5cm: Follow up at 1,3,5 years ISTHMUS: # of nodules measured in the isthmus: 0 Bilateral neck scanned, no evidence of lymphadenopathy. IMPRESSION: Bilateral thyroid nodules which are relatively stable compared to prior 03/12/2022. Recommendations as described above.
== END | disposition home or self-care (01) ==
LOC: RADUSWWP 09:22
PROVIDERS: ATTEND Internal Medicine Endocrinology, Diabetes & Metabolism
DX: E04.2 Nontoxic multinodular goiter (principal)
CPT/HCPCS: 76536

== ENCOUNTER → 2023-08-26 | Outpatient (CLI) | payer OTHER ==
[2023-08-26 16:15] LABS: Basophils # (A) 0.06 X 10*3/uL (0.00-0.10); Basophils % (A) 0.7 %; Eosinophils # (A) 0.05 X 10*3/uL (0.04-0.35); Eosinophils % (A) 0.6 %; HCT 48.7 % (37.2-46.3); Lymphocytes # (A) 3.15 X 10*3/uL (0.90-5.00); Lymphocytes % (A) 38.3 %; MCH 31.1 pg (27.0-32.0); MCHC 32.9 g/dL (32.0-37.0); MCV 94.6 FL (80.0-97.0); Mean Platelet Volume 10.2 FL (9.5-12.2); Monocytes # (A) 0.66 X 10*3/uL (0.20-1.00); NRBC Per 100 WBC 0 X 10*3/uL (0.00-0.01); Neutrophils # (A) 4.28 X 10*3/uL (1.80-7.70); Neutrophils % (A) 52.2 %; Platelet Count 351 X 10*3/uL (140-440); RBC 5.15 X 10*6/uL (4.10-5.20); RDW 12.5 % (11.5-14.5); WBC 8.22 X 10*3/uL (4.50-10.00)
[2023-08-26 16:22] LABS: ALT 20 U/L (8-44); AST 14 U/L (13-35); Albumin 4.6 g/dL (3.8-4.9); Albumin/Globulin Ratio 1.64 Ratio (1.60-3.17); Alkaline Phosphatase 93 U/L (41-126); Blood Urea Nitrogen 9.6 mg/dL (9.0-27.0); Chloride 105 mmol/L (96-109); Chol/HDL Ratio 4.27 Ratio; Globulin 2.8 g/dL (1.6-3.3); Glucose 86 mg/dL (70-110); LDL Cholesterol,Calculated 116.3 mg/dL (0.0-131.0); Magnesium 2.2 mg/dL (1.5-2.4); Potassium 5.4 mmol/L (3.5-5.5); Sodium 141 mmol/L (135-145); Total Bilirubin 0.4 mg/dL (0.3-1.2); Total Protein 7.4 g/dL (6.2-8.2)
== END | disposition home or self-care (01) ==
LOC: LABWHC1 10:13
PROVIDERS: ATTEND Internal Medicine Clinical Cardiac Electrophysiology
DX: I10 Essential (primary) hypertension (principal); I49.3 Ventricular premature depolarization; E78.5 Hyperlipidemia, unspecified
CPT/HCPCS: 36415; 80053; 80061; 83735; 84443; 85025

== ENCOUNTER → 2023-12-02 | Outpatient (CLI) | payer OTHER ==
--- NOTE | 2023-12-02 13:25 | US ---
EXAMINATION TYPE: US thyroid st tissue head/neck DATE OF EXAM: 12/02/2023 COMPARISON: CLINICAL INDICATION: Female, 58 years old with history of E04.2 NONTOXIC MULTINODULAR GOITER; Follow up nodules. Not on thyroid meds. GLAND SIZE: Right Lobe: 4.6 x 1.4 x 1.4 cm Overall Parenchyma: homogeneous Left Lobe: 4.6 x 3.6 x 3.2 cm Overall Parenchyma: homogeneous Isthmus Thickness: 0.4 cm NODULES- RIGHT: # of nodules measured on right: 3- Multiple nodules seen with largest measured 1. 0.8 X 0.7 x 0.7 cm, mid lateral, solid or almost completely solid, hypoechoic nodule, which is w ider than tall, with smooth margins, without echogenic foci. Prior size: 0.8 x 0.8 x 0.9 cm 2. 0.8 X 0.8 x 0.7 cm, lower mid, solid or almost completely solid, hypoechoic nodule, which is wid er than tall, with smooth margins, without echogenic foci. Prior size: 1.0 x 0.8 x 1.0 cm 3. 1.4 X 1.2 x 1.6 cm, lower lateral, spongiform, hypoechoic nodule, which is taller than wide, wit h smooth margins, without echogenic foci. TR2. Prior size: 1.6 x 1.0 x 1.1 cm (measured in 03/2021) LEFT: # of nodules measured on left: 1. 4.2 X 3.4 x 2.9 cm, mid mid, mixed cystic and solid, isoechoic nodule, which is wider than tall, with smooth margins, with echogenic foci. TRII. Prior size: 5.2 x 3.0 x 3.7 cm ISTHMUS: # of nodules measured in the isthmus: 1 1. 0.8 X 0.8 x 0.8 cm right lateral solid or almost completely solid, hypoechoic nodule, which is w ider than tall, with smooth margins, without echogenic foci. Prior size: 0.7 x 0.8 x 0.6 cm (measured in 03/2021) Bilateral neck scanned, no evidence of lymphadenopathy. IMPRESSION: 1. Multinodular goiter. 2017 ACR TI-RADS LEVEL: TR-RADS 2 - Not Suspicious: No FNA *Highest TI-RADS level nodule reported
== END | disposition home or self-care (01) ==
LOC: RADUSWWP 10:02
PROVIDERS: ATTEND Internal Medicine Endocrinology, Diabetes & Metabolism
DX: E04.2 Nontoxic multinodular goiter (principal)
CPT/HCPCS: 76536

== ENCOUNTER → 2023-12-02 | Outpatient (CLI) | payer OTHER ==
[2023-12-02 15:42] LABS: ALT 19 U/L (8-44); AST 16 U/L (13-35); Albumin 4.6 g/dL (3.8-4.9); Alkaline Phosphatase 97 U/L (41-126); BUN/Creat Ratio 14.88 Ratio (12.00-20.00); Blood Urea Nitrogen 11.9 mg/dL (9.0-27.0); Calcium 9.8 mg/dL (8.7-10.3); Carbon Dioxide 26.9 mmol/L (21.6-31.8); Chloride 104 mmol/L (96-109); Globulin 2.7 g/dL (1.6-3.3); Glucose 79 mg/dL (70-110); Potassium 4.5 mmol/L (3.5-5.5); Sodium 141 mmol/L (135-145); Total Bilirubin 0.4 mg/dL (0.3-1.2); Total Protein 7.3 g/dL (6.2-8.2)
[2023-12-02 15:43] LABS: T4, Free (Free Thyroxine) 1.26 ng/dL (0.80-1.80)
[2023-12-02 16:04] LABS: HGB 16.2 g/dL (12.0-15.0); MCH 30.3 pg (27.0-32.0); MCHC 32.4 g/dL (32.0-37.0); MCV 93.5 FL (80.0-97.0); Mean Platelet Volume 9.5 FL (9.5-12.2); NRBC Per 100 WBC 0 X 10*3/uL (0.00-0.01); Platelet Count 361 X 10*3/uL (140-440); RBC 5.35 X 10*6/uL (4.10-5.20); RDW 12.9 % (11.5-14.5); WBC 9.16 X 10*3/uL (4.50-10.00)
== END | disposition home or self-care (01) ==
LOC: LABWHC1 10:35
PROVIDERS: ATTEND Internal Medicine Endocrinology, Diabetes & Metabolism
DX: E05.00 Thyrotoxicosis with diffuse goiter without thyrotoxic crisis or storm (principal)
CPT/HCPCS: 36415; 80053; 84439; 84443; 84480; 85027

== ENCOUNTER → 2024-06-30 | Outpatient (CLI) | payer OTHER ==
--- NOTE | 2024-06-30 13:03 | US ---
EXAMINATION TYPE: US thyroid st tissue head/neck DATE OF EXAM: 06/30/2024 COMPARISON: US 12/02/2023, 01/28/2023 CLINICAL INDICATION: Female, 59 years old with history of E04.2 NONTOXIC MULTINODULAR GOITER; F/U nod ules TECHNIQUE: Grayscale and color Doppler imaging of the thyroid gland. FINDINGS: GLAND SIZE: Right Lobe: 5.5 x 2.2 x 1.5 cm Overall Parenchyma: heterogeneous Left Lobe: 5.5 x 3.0 x 3.0 cm Overall Parenchyma: heterogeneous Isthmus Thickness: 0.4 cm NODULES RIGHT: # of nodules measured on right: 3 1. 1.1 X 1.0 x 0.9 cm, mid, cystic or almost completely cystic, hypoechoic nodule, which is wider t wen tall, with smooth margins, without echogenic foci. Prior size: 0.8 x 0.7 x 0.7 cm 2. 0.8 X 0.8 x 0.9 cm, mid, solid or almost completely solid, hypoechoic nodule, which is wider darnell n tall, with smooth margins, without echogenic foci. Prior size: 0.8 x 0.8 x 0.7 cm 3. 1.5 X 1.1 x 1.0 cm, lower, mixed cystic and solid, hypoechoic nodule, which is wider than tall, with smooth margins, without echogenic foci. TR 3 Prior size: 1.4 x 1.6 x 1.2 cm LEFT: # of nodules measured on left: 1 1. 4.2 X 2.9 x 3.5 cm, mid, mixed cystic and solid, hypoechoic nodule, which is wider than tall, wi th smooth margins, without echogenic foci. TR 3 Prior size: 4.2 x 2.9 x 3.4 cm ISTHMUS: # of nodules measured in the isthmus: 1 1. 0.8 X 0.8 x 0.6 cm solid or almost completely solid, hypoechoic nodule, which is wider than tall , with smooth margins, without echogenic foci. Prior size: 0.8 x 0.8 x 0.8 cm Bilateral neck scanned, no evidence of lymphadenopathy. Essentially stable nodules. IMPRESSION: Multinodular thyroid similar in appearance to prior exam. No interval change in the dominant left thy roid nodule. 2017 ACR TI-RADS LEVEL: TR-RADS 3 - Mildly Suspicious: Follow if > 1.5 cm, FNA if > 2.5 cm *Highest TI-RADS level nodule reported [email or web address], , 06/30/2024 1:00 PM
== END | disposition home or self-care (01) ==
LOC: RADUSWWP 12:14
PROVIDERS: ATTEND Internal Medicine Endocrinology, Diabetes & Metabolism
DX: E04.2 Nontoxic multinodular goiter (principal); R22.0 Localized swelling, mass and lump, head
CPT/HCPCS: 76536